=== PATIENT | female | born 1970 | race Caucasian/White ===

== ENCOUNTER 2017-12-20 08:51 | Emergency (ER) | payer OTHER, BC ==
[~2017-12-20] VITALS: Ht 165.1 cm; Wt 99.8 kg
[~2017-12-20 08:51] MED LIST: ASPI81CH; LEVSOD100 PO; LEVSOD150; MULVITMIND PO; ONDA8ODT MM; PRENZ; PROG100; PROM25 PO
[2017-12-20] MEDS ORDERED: Omeprazole20 M1 PO (09:25)
[2017-12-20] MEDS ORDERED: Norco 5-325 Ta1 EACH PO (10:06)
[2017-12-20] MEDS ORDERED: Valium5 MG PO (10:06)
[2017-12-20] MEDS ORDERED: Zofran Odt4 MG SL (10:06)
== END 2017-12-20 10:15 | disposition home or self-care (01) ==
LOC: ER 08:51
DX: M25.512 Pain in left shoulder (principal); M79.642 Pain in left hand; Z88.2 Allergy status to sulfonamides; Z88.5 Allergy status to narcotic agent; Z79.899 Other long term (current) drug therapy; V49.9XXA Car occupant (driver) (passenger) injured in unspecified traffic accident, initial encounter
CPT/HCPCS: 73130; 99283

== ENCOUNTER → 2019-04-19 | Outpatient (CLI) | payer BC ==
[~2019-04-19] MED LIST changes: +Norco 5-325 Ta1 EACH PO; +Omeprazole20 M1 PO; +Valium5 MG PO; +Zofran Odt4 MG SL
== END | disposition home or self-care (01) ==
LOC: LAB SHORT 10:35 → PLD 10:35
DX: D22.5 Melanocytic nevi of trunk (principal)
CPT/HCPCS: 88305

== ENCOUNTER → 2019-05-10 | Outpatient (CLI) | payer BC | END | disposition home or self-care (01) | LOC: PLD 08:19 → LAB SHORT 08:19 | DX: D22.5 Melanocytic nevi of trunk (principal) | CPT/HCPCS: 88305 ==

== ENCOUNTER → 2020-04-24 | Outpatient (CLI) | payer BC | END | disposition home or self-care (01) | LOC: LAB SHORT 10:12 → PLD 10:12 | DX: C44.01 Basal cell carcinoma of skin of lip (principal) | CPT/HCPCS: 88305 ==

== ENCOUNTER → 2020-09-10 | Outpatient (CLI) | payer BC | END | disposition home or self-care (01) | LOC: PLD 07:51 → LAB SHORT 07:51 | DX: D22.39 Melanocytic nevi of other parts of face (principal) | CPT/HCPCS: 88305 ==

== ENCOUNTER → 2022-01-20 | Outpatient (CLI) | payer BC ==
[2022-01-22 09:25] LABS: Stool Occult Blood Guaiac 1 Neg (Neg); Stool Occult Blood Guaiac 2 Neg (Neg)
[2022-01-22 09:26] LABS: Stool Occult Blood Guaiac 3 Neg (Neg)
== END | disposition home or self-care (01) ==
LOC: LAB SHORT 14:42 → LAB FUT 01-16 15:00
PROVIDERS: Internal Medicine
DX: D72.89 Other specified disorders of white blood cells (principal)
CPT/HCPCS: 82272

== ENCOUNTER → 2022-12-16 | Outpatient (CLI) | payer BC | END | disposition home or self-care (01) | LOC: LAB SHORT 10:38 → PLD 10:38 | DX: D36.11 Benign neoplasm of peripheral nerves and autonomic nervous system of face, head, and neck (principal) | CPT/HCPCS: 88305 ==

== ENCOUNTER → 2023-10-20 | Outpatient (CLI) | payer BC | LOC: LAB SHORT 09:48 → LAB 09:48 | DX: D48.5 Neoplasm of uncertain behavior of skin (principal) | CPT/HCPCS: 88305 ==

== ENCOUNTER 2025-01-30 10:19 | Day surgery (SDC) | payer BC ==
[~2025-01-30] VITALS: Ht 165.1 cm; Wt 99.7 kg
[~2025-01-30 10:19] MED LIST changes: +METO25ER PO; +NS 500 ML IV ONE; +SYNTHROID137 MCG PO
[2025-01-30] MEDS ORDERED: NS 1,000 ML IV ONE (11:48)
--- NOTE | 2025-01-30 12:23 | NUR ---
01/30/25 1223 [place] LOCAL INJECTION DONE BY AT 1219 ON BILAT HANDS. TIMEOUT AT 1218.
[2025-01-30] MEDS ORDERED: Midazolam HCl 1MG / ML 2ML Vial ONE (12:48)
[2025-01-30] MEDS ORDERED: FentaNYL Citrate 50 MCG/ML 2 ML Injection ONE (12:48)
[2025-01-30] MEDS ORDERED: Ondansetron HCl 2 MG / ML 2ML Vial ONE (12:52)
[2025-01-30] MEDS ORDERED: Dexamethasone Sod Phos 10 MG/ML 1ML VIAL ONE (12:52)
[2025-01-30 13:16] VITALS: BP 111/81
== END 2025-01-30 13:40 | disposition home or self-care (01) ==
LOC: ORSCSDS 10:19
PROVIDERS: Orthopaedic Surgery
PROC: 0LN70ZZ Release Right Hand Tendon, Open Approach (ICD-10-PCS; principal; 2025-01-30 12:30)
PROC: 0LN80ZZ Release Left Hand Tendon, Open Approach (ICD-10-PCS; principal; 2025-01-30 12:30)
DX: M65.331 Trigger finger, right middle finger (principal); M65.312 Trigger thumb, left thumb; I10 Essential (primary) hypertension; E03.9 Hypothyroidism, unspecified; K21.9 Gastro-esophageal reflux disease without esophagitis; E66.01 Morbid (severe) obesity due to excess calories; Z68.36 Body mass index [BMI] 36.0-36.9, adult; Z79.899 Other long term (current) drug therapy
CPT/HCPCS: J1100; J2250; J2405; J3010; J7040